=== PATIENT | female | born 1975 | race Asian ===

== ENCOUNTER → 2017-09-23 | Outpatient (CLI) | payer OTHER ==
[~2017-09-23] MED LIST: METO25 PO; TUMS CHEW
[2017-09-23 09:53] LABS: AUTOMATED NEUTROPHIL # 3.1 TH/MM3 (1.8-7.7); BASOPHIL % 0.5 % (0.0-2.0); EOSINOPHIL # 0.2 TH/MM3 (0-0.4); EOSINOPHIL % 3.2 % (0.0-4.0); HEMATOCRIT 41.8 % (35.0-46.0); HEMOGLOBIN 13.8 GM/DL (11.6-15.3); LYMPH % 29.7 % (9.0-44.0); LYMPHOCYTE # 1.6 TH/MM3 (1.0-4.8); MEAN CELL VOLUME 96.5 FL (80.0-100.0); MEAN CORPUSCULAR HEMOGLOBIN 31.9 PG (27.0-34.0); MEAN PLATELET VOLUME 8.4 FL (7.0-11.0); MONO % 10.1 % (0.0-8.0); MONOCYTE # 0.5 TH/MM3 (0-0.9); NEUT % 56.5 % (16.0-70.0); PLATELET COUNT 262 TH/MM3 (150-450); RED BLOOD COUNT 4.33 MIL/MM3 (4.00-5.30); RED CELL DISTRIBUTION WIDTH 12.6 % (11.6-17.2); WHITE BLOOD COUNT 5.4 TH/MM3 (4.0-11.0)
[2017-09-23 10:26] LABS: ALBUMIN 3.6 GM/DL (3.4-5.0); ALKALINE PHOSPHATASE 46 U/L (45-117); ALT (GPT) 21 U/L (10-53); AST (GOT) 24 U/L (15-37); BLOOD UREA NITROGEN 13 MG/DL (7-18); CALCIUM 8.6 MG/DL (8.5-10.1); CHLORIDE 106 MEQ/L (98-107); CREATININE 0.62 MG/DL (0.50-1.00); GLOMERULAR FILTRATION RATE 105 ML/MIN (>89); GLUCOSE,FASTING 91 MG/DL (74-99); SODIUM (NA) 141 MEQ/L (136-145); TOTAL BILIRUBIN ADULT 0.2 MG/DL (0.2-1.0); TOTAL PROTEIN 7.3 GM/DL (6.4-8.2)
== END ==
LOC: CLAB 09:11
PROVIDERS: ATTEND Internal Medicine
DX: R81 Glycosuria (principal); N39.0 Urinary tract infection, site not specified
CPT/HCPCS: 36415; 80053; 84443; 85025

== ENCOUNTER → 2017-10-08 | Outpatient (CLI) | payer OTHER ==
[2017-10-08 13:14] LABS: BACTERIA, URINE OCC /hpf; BLOOD, URINE LARGE (NEG); COMMENT (UR) CULTURE INDICATED; CULTURE IF INDICATED CULTURE INDICATED; GLUCOSE,URINE NEG (NEG); KETONE, URINE NEG (NEG); MUCUS URINE FEW /lpf (OCC); NITRITE,URINE NEG (NEG); SQUAMOUS EPITHELIAL CELL URINE 7 /hpf (0-5); URINE COLOR YELLOW (YELLW/STRAW)
== END ==
LOC: CLAB 12:48
DX: N39.0 Urinary tract infection, site not specified (principal)
CPT/HCPCS: 81001; 87086

== ENCOUNTER 2017-10-24 04:24 | Emergency (ER) | payer OTHER ==
[~2017-10-24] VITALS: Ht 162.6 cm; Wt 54.5 kg
[2017-10-24 04:28] VITALS: BP 132/66; PULSE 89; RESP 12; TEMP 97.2; O2SAT 99
[2017-10-24 04:56] LABS: BLOOD, URINE TRACE (NEG); GLUCOSE,URINE NEG (NEG); KETONE, URINE NEG (NEG); NITRITE,URINE NEG (NEG); PH, URINE 6.5 (5.0-8.5)
[2017-10-24 05:03] LABS: URINE COLOR YELLOW (YELLW/STRAW)
[2017-10-24 05:04] LABS: BACTERIA, URINE MOD /hpf; COMMENT (UR) CULTURE INDICATED; CULTURE IF INDICATED CULTURE INDICATED; RBC, URINE 0-3 /hpf (0-3)
[2017-10-24] MEDS ORDERED: NITR100C4 PO (05:06)
[2017-10-24] MEDS ORDERED: cefTRIAXone INJ 1,000 MG in SODIUM CHLORIDE 0.9% INJ 100 ML IV ONE (05:15)
[2017-10-24] MEDS ORDERED: CIPR-9 PO (06:12)
--- NOTE | 2017-10-24 06:13 | PD ---
HPI Chief Complaint: Complaint Time Seen by Provider: 05:15 Travel History International Travel<30 days: No Contact w/Intl Traveler<30days: No Traveled to known affect area: No History of Present Illness HPI The patient is a 42-year-old female that comes in because of suprapubic discomfort. She denies any nausea, vomiting or fever. She has low back pain but no flank pain. She has been taking Macrobid 100 mg twice daily for 7 days and completed the course yesterday. PFSH Past Medical History Cancer: No Cardiovascular Problems: No Diminished Hearing: No Hepatitis: No Hiatal Hernia: No Respiratory: No Thyroid Disease: No Tetanus Vaccination: Unknown ?: Not LMP: 10/08/17 : 2 Para: 2 Dilation and Curettage (D&C): Yes Past Surgical History Abdominal Surgery: Yes Pacemaker: No Other Surgery: No Social History Alcohol Use: No Tobacco Use: No Substance Use: No Allergies-Medications (Allergen,Severity, Reaction): Coded Allergies: No Known Allergies (Unverified Adverse Reaction, Unknown, 10/24/17) Reported Meds & Prescriptions Reported Meds & Active Scripts Active Reported Nitrofurantoin Monohydrate Macrocrystals (Nitrofurantoin Monoh/Nitrofur Macro) 100 Mg Cap 100 Mg PO BID Review of Systems Except as stated in HPI: all other systems reviewed are Neg Physical Exam Narrative GENERAL: The patient is alert, oriented 3 and minimal apparent distress with her suprapubic discomfort. Her vital signs are normal. SKIN: Focused skin assessment warm/dry. HEAD: Atraumatic. Normocephalic. EYES: Pupils equal and round. No scleral icterus. No injection or drainage. ENT: No nasal bleeding or discharge. Mucous membranes pink and moist. NECK: Trachea midline. No JVD. CARDIOVASCULAR: Regular rate and rhythm. No murmur appreciated. RESPIRATORY: No accessory muscle use. Clear to auscultation. Breath sounds equal bilaterally. GASTROINTESTINAL: Abdomen soft, with tenderness to direct palpation in the midline suprapubic region, nondistended. Hepatic and splenic margins not palpable. No guarding or rebound is present. MUSCULOSKELETAL: No obvious deformities. No clubbing. No cyanosis. No edema. NEUROLOGICAL: Awake and alert. No obvious cranial nerve deficits. Motor grossly within normal limits. Normal speech. PSYCHIATRIC: Appropriate mood and affect; insight and judgment normal. Data Data Last Documented VS Vital Signs Date Time Temp Pulse Resp B/P (MAP) Pulse Ox O2 Delivery O2 Flow Rate FiO2 10/24/17 05:02 20 10/24/17 04:28 97.2 89 132/66 (88) 99 Orders Orders Urinalysis - C+S If Indicated (10/24/17 04:43) Ed Urine Pregnancytest Poc (10/24/17 04:43) Urine Culture (10/24/17 04:30) Ceftriaxone Inj (Rocephin Inj) (10/24/17 05:15) Ed Discharge Order (10/24/17 05:16) Labs Laboratory Tests Test 10/24/17 04:30 Urine Color YELLOW Urine Turbidity SLIGHT Urine pH 6.5 Urine Specific [place] 1.022 Urine Protein NEG mg/dL Urine Glucose (UA) NEG mg/dL Urine Ketones NEG mg/dL Urine Occult Blood TRACE Urine Nitrite NEG Urine Bilirubin NEG Urine Leukocyte Esterase LARGE Urine RBC 0-3 /hpf Urine WBC 20-24 /hpf Urine Squamous Epithelial Cells 6-8 /hpf Urine Bacteria MOD /hpf Microscopic Urinalysis Comment CULTURE INDICATED MDM Medical Decision Making Medical Screen Exam Complete: Yes Emergency Medical Condition: Yes Medical Record Reviewed: Yes Interpretation(s) The urine shows trace occult blood, large leukocyte Estrace, 20-24 white cells with moderate bacteria and culture is indicated Differential Diagnosis Cystitis, interstitial cystitis, PID-unlikely, Narrative Course The patient appears to have a recurrent cystitis. This may be interstitial cystitis. The patient needs to follow-up with her primary care physician. She is put on Cipro. Apparently, the Macrobid did not work Diagnosis Primary Impression: Cystitis Additional Instructions: Increase liquid intake and take the antibiotic twice daily. After a bowel movement wipe from front to back and try to urinate after having intercourse. Follow-up with your primary care physician next week. Med/Other Pt SpecificInfo: Prescription(s) given Scripts Ciprofloxacin (Cipro) 500 Mg Tab 500 MG PO BID for Infection for 10 Days, #20 TAB 0 Refills Prov: Mannie Zarco MD 10/24/17 Disposition: 01 DISCHARGE HOME Condition: Stable Mannie Zarco MD Oct 24, 2017 06:13
[2017-10-24] MEDS ORDERED: CIPROFLOXACIN 500 MG TAB PO ONE (06:15)
[2017-10-24 06:35] VITALS: BP 124/76; PULSE 82; RESP 18; TEMP 98.6; O2SAT 97
== END 2017-10-24 06:55 | disposition home or self-care (01) ==
LOC: PHED 04:24
DX: N30.90 Cystitis, unspecified without hematuria (principal)
CPT/HCPCS: 81001; 84703; 87086; 96365; 99283; J0696

== ENCOUNTER 2017-11-12 09:26 | Emergency (ER) | payer OTHER ==
[~2017-11-12 09:26] MED LIST changes: +CIPR-9 PO; -METO25 PO; +NITR100C4 PO; -TUMS CHEW
[2017-11-12] MEDS ORDERED: IOHEXOL 350 MG/ML 10 ML VIAL (for RAD DIAG) IVCONTRAST ONE (09:27)
[2017-11-12 09:29] VITALS: BP 127/60; PULSE 81; RESP 16; TEMP 98.1; O2SAT 100
--- NOTE | 2017-11-12 09:57 | PD ---
HPI Chief Complaint: Complaint Time Seen by Provider: 09:38 Travel History International Travel<30 days: No Contact w/Intl Traveler<30days: No Traveled to known affect area: No History of Present Illness HPI 42-year-old female presents to emergency department complaining of intermittent lower abdominal cramping for 1 year. Patient states she is here today because she is "tired of having pain". States her pain is mainly on the left lower quadrant/adnexal region has associated bloating without vaginal discharge. States her last menstrual period was October 31. Patient states the pain is intermittent and is not associated with her menstrual cycle. She is been evaluated previously and noted to have multiple urinary tract infections and treated with antibiotics. Her last dose of antibiotic was November 03 and did not completely clear her symptoms. States she had a Pap this year. States she has also had had multiple transvaginal ultrasounds which demonstrated fibroids and ovarian cysts. She denies fever, chills, chest pain, shortness of breath, nausea, vomiting, diarrhea. PFSH Past Medical History Cancer: No Cardiovascular Problems: No Diminished Hearing: No Hepatitis: No Hiatal Hernia: No Respiratory: No Thyroid Disease: No ?: Not : 2 Para: 2 Dilation and Curettage (D&C): Yes Past Surgical History Abdominal Surgery: Yes Pacemaker: No Other Surgery: No Social History Alcohol Use: No Tobacco Use: No Substance Use: No Allergies-Medications (Allergen,Severity, Reaction): Coded Allergies: No Known Allergies (Unverified Adverse Reaction, Unknown, 10/24/17) Reported Meds & Prescriptions Reported Meds & Active Scripts Active Cipro (Ciprofloxacin HCl) 500 Mg Tab 500 Mg PO BID 10 Days Reported Nitrofurantoin Monohydrate Macrocrystals (Nitrofurantoin Monoh/Nitrofur Macro) 100 Mg Cap 100 Mg PO BID Review of Systems Except as stated in HPI: all other systems reviewed are Neg Physical Exam Narrative GENERAL: Well-developed well-nourished in no apparent distress SKIN: Focused skin assessment warm/dry. HEAD: Atraumatic. Normocephalic. EYES: Pupils equal and round. No scleral icterus. No injection or drainage. NECK: Trachea midline. No JVD. CARDIOVASCULAR: Regular rate and rhythm. No murmur appreciated. RESPIRATORY: No accessory muscle use. Clear to auscultation. Breath sounds equal bilaterally. GASTROINTESTINAL: Abdomen soft, mildly tender, nondistended without organomegaly. MUSCULOSKELETAL: No obvious deformities. No clubbing. No cyanosis. No edema. NEUROLOGICAL: Awake and alert. No obvious cranial nerve deficits. Motor grossly within normal limits. Normal speech. PSYCHIATRIC: Appropriate mood and affect; insight and judgment normal. Data Data Last Documented VS Vital Signs Date Time Temp Pulse Resp B/P (MAP) Pulse Ox O2 Delivery O2 Flow Rate FiO2 11/12/17 09:29 98.1 81 16 127/60 (82) 100 Room Air Orders Orders Urinalysis - C+S If Indicated (11/12/17 09:57) Ed Urine Pregnancytest Poc (11/12/17 09:57) Ct Abd/Pel W Iv Contrast(Rout) (11/12/17 ) Oral Contrast - Adult (11/12/17 10:12) Diatrizoate Liq (Md Li Liq) (11/12/17 10:45) Iohexol 350 Inj (Omnipaque 350 Inj) (11/12/17 09:27) Ed Discharge Order (11/12/17 12:10) Labs Laboratory Tests Test 11/12/17 10:00 Urine Color LIGHT-YELLOW Urine Turbidity HAZY Urine pH 5.5 Urine Specific [place] 1.007 Urine Protein NEG mg/dL Urine Glucose (UA) NEG mg/dL Urine Ketones NEG mg/dL Urine Occult Blood NEG Urine Nitrite NEG Urine Bilirubin NEG Urine Urobilinogen LESS THAN 2.0 MG/DL Urine Leukocyte Esterase MOD Urine RBC LESS THAN 1 /hpf Urine WBC 2 /hpf Urine Squamous Epithelial Cells 4 /hpf Urine Bacteria FEW /hpf Urine Mucus FEW /lpf Microscopic Urinalysis Comment CULT NOT INDICATED MDM Medical Decision Making Medical Screen Exam Complete: Yes Emergency Medical Condition: Yes Differential Diagnosis Uterine fibroids, ovarian cysts, ovarian torsion, nonspecific abdominal pain, urinary tract infection, Narrative Course 42-year-old female presents to emergency department complaining of intermittent lower abdominal/pelvic cramping and pressure for 1 year. Patient states she is here today because she is "tired of having pain". States her pain is mainly on the left lower quadrant/adnexal region has associated bloating without vaginal discharge. States her last menstrual period was October 31. Patient states the pain is intermittent and is not associated with her menstrual cycle. She is been evaluated previously and noted to have multiple urinary tract infections and treated with antibiotics. Her last dose of antibiotic was November 03 and did not completely clear her symptoms. States she had a Pap this year. States she has also had had multiple transvaginal ultrasounds which demonstrated fibroids and ovarian cysts. She denies fever, chills, chest pain, shortness of breath, nausea, vomiting, diarrhea. Also denies dysuria, frequency, hesitancy. Vital signs stable. Physical exam- mild TTP to lower abdominal/ pelvic region. Because the patient's extensive history of lower abdominal pain with multiple transvaginal ultrasounds, multiple antibiotic use, will obtain CT abd/pelvis to r/o fistula or other emergent causes. CT abdomen delayed secondary to inability to administer appropriate contrast orally. CT demonstrates a 2 cm left ovarian cyst and fluid within the endometrial canal. Urinalysis- no UTI. Will avoid another course of abx. I recommended to patient she follow up with real estate processor for further treatment and evaluation. Use Tylenol or Motrin for symptom relief. Diagnosis Primary Impression: Ovarian cyst Qualified Codes: N83.202 - Unspecified ovarian cyst, left side Referrals: [facility] Primary Care Physician Additional Instructions: Follow-up with primary care physician and real estate processor within 2-3 days. Use Tylenol or Motrin per package instructions for your symptom relief. Return to the ED for worsening or persistent symptoms. Disposition: 01 DISCHARGE HOME Condition: Stable Rosa M Vazquez Nov 12, 2017 09:57
[2017-11-12 10:29] LABS: BACTERIA, URINE FEW /hpf; BILIRUBIN, URINE NEG (NEG); BLOOD, URINE NEG (NEG); GLUCOSE,URINE NEG (NEG); KETONE, URINE NEG (NEG); MUCUS URINE FEW /lpf (OCC); NITRITE,URINE NEG (NEG); PH, URINE 5.5 (5.0-8.5); SQUAMOUS EPITHELIAL CELL URINE 4 /hpf (0-5); URINE COLOR LIGHT-YELLOW (YELLW/STRAW); URINE LEUKOCYTE ESTERASE MOD (NEG)
[2017-11-12] MEDS ORDERED: DIATRIZOATE MEGLUM/DIATRIZOATE SOD 9 ML CUP PO ONE (10:45)
--- NOTE | 2017-11-12 12:02 | RADRPT ---
EXAM DATE/TIME: 11/12/2017 11:41 [facility] COMPARISON: No previous studies available for comparison. INDICATIONS : Lower abdominal pain. IV CONTRAST: 96 cc Omnipaque 350 (iohexol) IV ORAL CONTRAST: Prescribed oral contrast ingested. RADIATION DOSE: 4.64 CTDIvol (mGy) MEDICAL HISTORY : Diabetes mellitus type 2. SURGICAL HISTORY : None. ENCOUNTER: Initial ACUITY: 3 days PAIN SCALE: 5/10 LOCATION: Bilateral lower quadrant TECHNIQUE: Volumetric scanning of the abdomen and pelvis was performed. Using automated exposure control and ad justment of the mA and/or kV according to patient size, radiation dose was kept as low as reasonably achievable to obtain optimal diagnostic quality images. DICOM format image data is available electro nically for review and comparison. FINDINGS: LOWER LUNGS: The visualized lower lungs are clear. LIVER: Homogeneous density without lesion. There is no dilation of the biliary tree. No calcified gallston es. SPLEEN: Normal size without lesion. PANCREAS: Within normal limits. KIDNEYS: Normal in size and shape. There is no mass, stone or hydronephrosis. ADRENAL GLANDS: Within normal limits. VASCULAR: There is no aortic aneurysm. BOWEL/MESENTERY: The stomach, small bowel, and colon demonstrate no acute abnormality. There is no free intraperitone al air or fluid. ABDOMINAL WALL: Within normal limits. RETROPERITONEUM: There is no lymphadenopathy. BLADDER: No wall thickening or mass. REPRODUCTIVE: The endometrial canal is mildly distended with fluid. A 2.2 cm cyst is identified along the left post erior margin of the uterus. Pelvic structures are otherwise unremarkable. INGUINAL: There is no lymphadenopathy or hernia. MUSCULOSKELETAL: Within normal limits for patient age. CONCLUSION: 1. Mildly distended endometrial canal with fluid. 2. 2 cm left adnexal cyst. 3. Otherwise unremarkable evaluation of the abdomen and pelvis. Navid Murillo MD on November 12, 2017 at 11:57 Board Certified Radiologist. This report was verified electronically.
== END 2017-11-12 18:56 | disposition home or self-care (01) ==
LOC: NEPD 09:26
DX: N83.202 Unspecified ovarian cyst, left side (principal); Z87.440 Personal history of urinary (tract) infections
CPT/HCPCS: 74177; 81001; 84703; 99285; Q9963; Q9967